=== PATIENT | female | born 1990 | race Caucasian/White ===

== ENCOUNTER 2016-03-07 06:21 | Emergency (ER) | payer MEDICAID, OTHER ==
[~2016-03-07] VITALS: Ht 162.6 cm; Wt 80.0 kg
[2016-03-07 06:31] VITALS: Ht 162.6 cm; Wt 80.0 kg
[2016-03-07] MEDS ORDERED: ERYTOPOI RIGHT EYE (06:54)
--- NOTE | 2016-03-07 08:52 | ERD ---
DATE OF SERVICE: HISTORY OF PRESENT ILLNESS: The patient is a 26-year-old female coming in complaining of right eye pain. The patient states that this pain started 3 days ago. She has pain when she blinks. She has noticed swelling to her eyelids. Denies any discharge or crusting when she wakes up. Denies any u se of contact lenses. Does wear glasses. Does not feel that there is a foreign body in her eye. H as never had this before. Denies sick contacts. PAST MEDICAL HISTORY: Denies medical problems. ALLERGIES: DENIES ALLERGIES TO MEDICATIONS. PAST SURGICAL HISTORY: Denies. HOSPITALIZATIONS: Denies. REVIEW OF SYSTEMS: A 12-point review of systems was done. Refer to HPI for positives, all other sy stems negative. PHYSICAL EXAMINATION: VITAL SIGNS: Temperature is 98.1, pulse 79, blood pressure is 144/70, respiratory rate 16, O2 satur ation 100% on room air. Pain intensity is 6/10. GENERAL: The patient is well-appearing, well-nourished, no acute distress. HEART: Regular rate and rhythm. No murmurs, clicks, rubs or gallops. No S3 or S4. CHEST: Clear to auscultation bilaterally. There are no rales, wheezes or rhonchi. HEENT: Atraumatic. Conjunctivae are pink. There is some mild swelling noted to the right lacrimal duct with no purulence, no injection of the sclera, no surrounding erythema, no soft tissue. Pupils equal, round, and reactive to light. No pain with extraocular movements. Tympanic membranes clear bilaterally. Oropharynx clear. No nystagmus or photophobia. SKIN: There is no apparent rash or petechia. The skin is warm and dry. NEURO: Alert and oriented. Cranial nerves 2-12 intact. Motor strength in all 4 extremities with 5/5 strength. Sensation grossly intact. Normal speech and gait. Babinski negative. DTR 2+ throughout. DIAGNOSIS: Stye. MEDICAL DECISION MAKING: The patient may have underlying clogged tear duct; however, I feel that stephanie brewster's symptoms are likely secondary to a stye within the right eye. I have low suspicion for jaime orbital or orbital cellulitis. I have low suspicion for ocular injury or abnormality. DISCHARGE: The patient is discharged stable. The patient is given a prescription for erythromycin and told to follow up with primary care within 1 to 2 days for reevaluation. The patient was told i f symptoms progress or worsen, to return to the ER. All other questions answered at the time of dis charge. Discharge summary given at the time of departure. The patient understood and complied with plan. Dictated By: RONA ROWAN for YUDELKA CHIRINOS/JEAN PAUL Conf#: [id number] DID#: [id number]
== END 2016-03-07 07:29 | disposition home or self-care (01) ==
LOC: FTE 06:21
DX: H00.013 Hordeolum externum right eye, unspecified eyelid (principal)
CPT/HCPCS: 99283